=== PATIENT | male | born 1970 | race American Indian/Alaskan Native ===

== ENCOUNTER 2018-08-31 15:14 | Outpatient (CLI) | payer BC ==
[2018-08-31 15:32] LABS: Basophils % (Auto) 0.7 % (0.0-1.8); Eosinophils # (Auto) 0.2 K/mm3 (0.0-0.4); Eosinophils % (Auto) 3.4 % (0.0-4.3); Hematocrit 43.8 % (35.5-45.6); Hemoglobin 14.8 gm/dl (11.8-15.2); Lymphocytes # (Auto) 2.8 K/mm3 (1.2-5.4); Lymphocytes % (Auto) 48.6 % (13.4-35.0); Mean Corpuscular HGB Conc 34 % (32-34); Mean Corpuscular Volume 79 fl (84-94); Monocytes # (Auto) 0.7 K/mm3 (0.0-0.8); Monocytes % (Auto) 11.7 % (0.0-7.3); Platelet Count 214 K/mm3 (140-440); Red Blood Count 5.54 M/mm3 (3.65-5.03); Red Cell Distribution Width 14.3 % (13.2-15.2)
[2018-08-31 15:57] LABS: Alanine Aminotransferase 57 units/L (7-56); Albumin 4.2 g/dL (3.9-5); BUN/Creatinine Ratio 10; Blood Urea Nitrogen 10 mg/dL (9-20); Calcium 9.4 mg/dL (8.4-10.2); Chol/HDL Ratio 4.92 %; HDL Cholesterol 41 mg/dL (40-59); Hemolysis Index 1; LDL Cholesterol,Direct 150 mg/dL (50-130)
== END 2018-08-31 15:15 | disposition home or self-care (01) ==
LOC: LAB 15:14
PROVIDERS: ATTEND Internal Medicine
DX: E55.9 Vitamin D deficiency, unspecified (principal); E66.3 Overweight; I10 Essential (primary) hypertension; E78.5 Hyperlipidemia, unspecified; R53.83 Other fatigue; Z79.899 Other long term (current) drug therapy
CPT/HCPCS: 36415; 80053; 80061; 82306; 84443; 85025

== ENCOUNTER 2019-01-08 10:57 | Outpatient (CLI) | payer BC ==
--- NOTE | 2019-01-08 14:00 | Magnetic Resonance Report ---
MRI of the left knee without contrast INDICATION: Left knee pain following injury FINDINGS: Mild tricompartmental degenerative changes of the knee. Small to moderate knee effusion, pr imarily within the suprapatellar compartment. There is evidence of a horizontal oblique tear to the p osterior junctional zone and posterior horn of the medial meniscus. No free intra-articular body. The cruciate and collateral ligaments are intact. The extensor apparatus is intact the posterior lateral corner structures are intact IMPRESSION: Tricompartmental degenerative changes of the knee, as above. Horizontal oblique tear to t he posterior junctional zone and posterior horn of the medial meniscus. Signer Name: Last Acevedo MD Signed: 01/08/2019 1:55 PM Workstation Name: [id number]
== END 2019-01-08 10:58 | disposition home or self-care (01) ==
LOC: MRI 10:57
PROVIDERS: ATTEND Orthopaedic Surgery
DX: M17.12 Unilateral primary osteoarthritis, left knee (principal)
CPT/HCPCS: 73721

== ENCOUNTER 2019-06-10 10:03 | Day surgery (SDC) | payer BC ==
[~2019-06-10 10:03] MED LIST: ceFAZolin/STERILE WATER 2 GM/20 ML SYRINGE IV NR
[2019-06-10] MEDS ORDERED: HYDROmorphone 1 MG/1 ML INJ IV PRN (10:42)
--- NOTE | 2019-06-10 10:43 | Anesthesia Day of Surgery ---
Anesthesia Day of Surgery - Day of Surgery Patient Examined: Yes Patient H&P Reviewed: Yes Patient is NPO: Yes
--- NOTE | 2019-06-10 10:43 | Anesthesia Consultation ---
Anesthesia Consult and Med Hx Date of service: 06/10/19 - Airway Anesthetic Teeth Evaluation: Good ROM Head & Neck: Adequate Mental/Hyoid Distance: Adequate Mallampati Class: Class III Intubation Access Assessment: Possibly Difficult (full michelle -> possible difficult mask) - Pulmonary Exam CTA: Yes - Cardiac Exam Cardiac Exam: RRR - Pre-Operative Health Status ASA Pre-Surgery Classification: ASA1 Proposed Anesthetic Plan: General - Pulmonary Hx Smoking: Yes (OCC CIGARS) Hx Respiratory Symptoms: No Hx Sleep Apnea: No (CIERA PRE SCREEN LOW RISK.) - Cardiovascular System Hx Hypertension: No - Central Nervous System CVA: No - Gastrointestinal Hx Gastroesophageal Reflux Disease: No - Endocrine Hx Renal Disease: No Hx Liver Disease: No Hx Insulin Dependent Diabetes: No Hx Non-Insulin Dependent Diabetes: No Hx Thyroid Disease: No - Hematic Hx Sickle Cell Disease: ([facility] TRAIT ONLY) - Other Systems Hx Obesity: Yes (BMI 37)
[2019-06-10] MEDS ORDERED: GABAPENTIN 300 MG CAP PO NR (11:00)
[2019-06-10] MEDS ORDERED: LACTATED RINGERS 1,000 ML IV SCH (11:00)
[2019-06-10] MEDS ORDERED: CELECOXIB 200 MG CAP PO NR (11:00)
[2019-06-10] MEDS ORDERED: MIDAZOLAM 2 MG/2 ML INJ IV NR (11:00)
[2019-06-10] MEDS ORDERED: methylPREDNISolone ACETATE 40 MG/1 ML INJ ONE (13:22)
[2019-06-10] MEDS ORDERED: BUPIVACAINE-EPINEPHRINE/PF 0.5%-1:200,000 (30 ML) VIAL INFILTRATI ONE (13:22)
[2019-06-10] MEDS ORDERED: LIDOCAINE MPF (2%) 20 MG/1 ML VIAL 5 ML ONE (13:47)
[2019-06-10] MEDS ORDERED: PROPOFOL 200 MG/20 ML VIAL IV ONE (13:48)
[2019-06-10] MEDS ORDERED: fentaNYL 100 MCG/2 ML INJ ONE (13:48)
[2019-06-10] MEDS ORDERED: methylPREDNISolone ACETATE 80 MG/1 ML INJ INTRA-ARTI ONE (14:25)
[2019-06-10] MEDS ORDERED: BUPIVACAINE-EPINEPHRINE/PF 0.5%-1:200,000 (10 ML) VIAL IJ ONE (14:25)
--- NOTE | 2019-06-10 14:37 | Procedure Note ---
Date of procedure: 06/10/19 Pre-op diagnosis: internal derangement left knee Post-op diagnosis: other (grade 3 chondromalacia medial compartment) Procedure: Arthroscopy left knee with abrasion chondroplasty medial compartment Procedure The patient was brought to the OR placed in the OR table in supine position following induction and intubation by anesthesia the patient's left lower extremity was prepped and draped in the usual sterile manner.Atenolol procedure was done to identify the patient and the correct operative site. The leg was exsanguinated followed by inflation of the pneumatic tourniquet 300 mmHg next routine arthroscopic portals were made medial and laterally introduction of the arthroscope and insufflation of the knee joint with saline solution examination revealed these findings #1 in the medial compartment patient was noted to grade 3 chondromalacia changes involving both the tibial articular surface and corresponding femoral surfaces. Scope was then placed into the intercondylar notch. Anterior cruciate ligament was seen and appeared to be intact next placing the leg in a figure for position of the lateral compartment was explored. The patient was noted to have mild scarring of the inner portion of the lateral meniscus D articular cartilage appeared normal and consistency the suprapatellar pouch was explored and no loose bodies or abnormalities were seen here next the arthroscope was then repositioned back into the medial compartment using the arthroscopic shaver, the articular cartilage debrided back to healthy appearing articular cartilage the meniscal cartilage sorry D articular cartilage was also debrided The wound was copiously irrigated second look was done no residual bony and soft tissue debris was seen the arthroscope was then removed the stab wounds were repaired Marcaine and Depo-Medrol mixture was then injected intra-articularly with routine postoperative dressings were applied the patient tolerated the procedure Anesthesia: MAC Anesthesia: MAC Surgeon: STEPHANIE HUMPHREY Fiscal Services Director: BARBRA LIU Estimated blood loss: minimal Pathology: none Condition: stable Disposition: PACU
[2019-06-10 15:58] VITALS: BP 127/83
--- NOTE | 2019-06-10 17:30 | Post Anesthesia Evaluation ---
- Post Anesthesia Evaluation Patient Participated: Yes Airway Patent: Yes Stable Respiratory Function: Yes Nausea/Vomiting: No Temp > 96.8F: Yes Pain Manageable: Yes Adequeate Hydration: Yes Anesthesia Complications: No Block Receding Appropriately: Not Applicable Patient on Ventilator: No
== END 2019-06-10 16:11 | disposition home or self-care (01) ==
LOC: OR 10:03
PROVIDERS: ATTEND Orthopaedic Surgery
DX: M23.8X2 Other internal derangements of left knee (principal); E66.9 Obesity, unspecified; F17.210 Nicotine dependence, cigarettes, uncomplicated; Z79.899 Other long term (current) drug therapy; Z68.37 Body mass index [BMI] 37.0-37.9, adult; Z98.890 Other specified postprocedural states
CPT/HCPCS: 29877; J0690; J1040; J2250; J2704; J3010; J7120; J1030

== ENCOUNTER 2019-11-10 12:09 | Outpatient (CLI) | payer BC ==
--- NOTE | 2019-11-10 14:23 | XRay Report ---
HISTORY:PAIN IN LEFT SHOULDER,UNSPECIFIED FRACTURE OF LEFT PUBIS COMPARISON: None. TECHNIQUE: AP views were obtained FINDINGS: Bones: No fracture or dislocation. Joint spaces: Maintained. Soft tissues: No significant abnormality. Additional findings: None. IMPRESSION: 1. No significant abnormality. Signer Name: Moe Cook MD Signed: 11/10/2019 2:18 PM Workstation Name: [id number]
== END 2019-11-10 12:10 | disposition home or self-care (01) ==
LOC: XRAY 12:09
PROVIDERS: ATTEND Orthopaedic Surgery
DX: S32.502A Unspecified fracture of left pubis, initial encounter for closed fracture (principal); M25.512 Pain in left shoulder; X58.XXXA Exposure to other specified factors, initial encounter; Y93.89 Activity, other specified; Y92.89 Other specified places as the place of occurrence of the external cause; Y99.8 Other external cause status
CPT/HCPCS: 72170

== ENCOUNTER 2019-12-20 11:45 | Outpatient (CLI) | payer BC ==
--- NOTE | 2019-12-20 13:24 | Magnetic Resonance Report ---
MRI left shoulder without contrast INDICATION: PAIN IN LEFT SHOULDER. COMPARISON: Left shoulder radiographs from 11/12/2019 FINDINGS: There is mild metallic artifact overlying the anterior glenoid where a metallic fixation s crew is in place. This does not significantly limited exam. There is advanced glenohumeral degenerative arthrosis with prominent marginal osteophytosis. An old-a ppearing Hill-Sachs fracture is present. The labrum is macerated, especially the inferior labrum. There is a small joint effusion and several small intra-articular osteochondral bodies. There is intermediate fluid signal within some of the rotator cuff tendons as well as trace subacromi al/subdeltoid and subcoracoid bursal fluid. No discrete rotator cuff tendon tear identified. The lizbeth ps tendon is intact. IMPRESSION: 1. Advanced glenohumeral degenerative arthrosis with macerated inferior labrum, small likely reactive joint effusion/synovitis, and several small osteochondral bodies. 2. The corresponding radiograph shows loosening of the anterior glenoid screw with considerable perim etallic lucency. Signer Name: Adalberto Nash MD Signed: 12/20/2019 1:20 PM Workstation Name: [id number]
== END 2019-12-20 11:46 | disposition home or self-care (01) ==
LOC: MRI 11:45
PROVIDERS: ATTEND Orthopaedic Surgery
DX: M19.012 Primary osteoarthritis, left shoulder (principal); M25.712 Osteophyte, left shoulder; M25.412 Effusion, left shoulder; Z98.890 Other specified postprocedural states

== ENCOUNTER 2020-05-26 05:56 | Day surgery (SDC) | payer BC ==
[~2020-05-26 05:56] MED LIST changes: +SODIUM CHLORIDE 0.9% 1000 ML 1,000 ML IV SCH; +WATER FOR IRRIG STERILE 1,000 ML BOTTLE ONE; +WATER FOR IRRIG STERILE 250 ML BOTTLE IR ONE; -ceFAZolin/STERILE WATER 2 GM/20 ML SYRINGE IV NR
--- NOTE | 2020-05-26 07:39 | Anesthesia Consultation ---
Anesthesia Consult and Med Hx Date of service: 05/26/20 - Airway Anesthetic Teeth Evaluation: Good ROM Head & Neck: Adequate Mental/Hyoid Distance: Adequate Mallampati Class: Class II Intubation Access Assessment: Probably Good - Pre-Operative Health Status ASA Pre-Surgery Classification: ASA2 Proposed Anesthetic Plan: MAC - Pulmonary Hx Smoking: Yes (OCC CIGARS) Hx Asthma: No Hx Respiratory Symptoms: No SOB: No COPD: No Home Oxygen Therapy: No Hx Pneumonia: No Hx Sleep Apnea: No (CIERA PRE SCREEN LOW RISK.) - Cardiovascular System Hx Hypertension: No Hx Coronary Artery Disease: No Hx Heart Attack/AMI: No Hx Angina: No Hx Percutaneous Transluminal Coronary Angioplasty (PTCA): No Hx Cardia Arrhythmia: No Hx Pacemaker: No Hx Internal Defibrillator: No Hx Valvular Heart Disease: No Hx Heart Murmur: No Hx Peripheral Vascular Disease: No - Central Nervous System Hx Neuromuscular Disorder: No Hx Seizures: No CVA: No Hx Back Pain: No Hx Psychiatric Problems: No - Gastrointestinal Hx Ulcer: No Hx Gastroesophageal Reflux Disease: No - Endocrine Hx Renal Disease: No Hx End Stage Renal Disease: No Hx Cirrhosis: No Hx Liver Disease: No Hx Insulin Dependent Diabetes: No Hx Non-Insulin Dependent Diabetes: No Hx Thyroid Disease: No Hx Hypothyroidism: No Hx Hyperthyroidism: No - Hematic Hx Anemia: No Hx Sickle Cell Disease: Yes ([facility] ONLY) - Other Systems Hx Alcohol Use: No Hx Substance Use: No Hx Cancer: No Hx Obesity: Yes (BMI 37)
--- NOTE | 2020-05-26 07:40 | Anesthesia Day of Surgery ---
Anesthesia Day of Surgery - Day of Surgery Patient Examined: Yes Patient H&P Reviewed: Yes Patient is NPO: Yes
[2020-05-26] MEDS ORDERED: LIDOCAINE MPF (2%) 20 MG/1 ML VIAL 5 ML ONE (07:54)
[2020-05-26] MEDS ORDERED: propofoL 200 MG/20 ML VIAL IV ONE ×2 (07:54→08:10)
--- NOTE | 2020-05-26 08:20 | Short Stay Summary ---
Short Stay Documentation Date of service: 05/26/20 Narrative H&P: Patient is a 49 yo aam who presents for screening colonoscopy. No changes from clinic note - History Past Medical History: other (no changes) Past Surgical History: No surgical history Social history: no significant social history - Allergies and Medications Current Medications: Allergies No Known Allergies Allergy (Verified 06/03/19 16:55) Home Medications Medication Instructions Recorded Confirmed Last Taken Type HYDROcodone/APAP 5-325 [Wagner 1 each PO Q4HR PRN #20 tablet 06/10/19 Unknown Rx 5-325 mg TAB] Active Medications Sodium Chloride (Nacl 0.9% 1000 Ml) 1,000 mls @ 50 mls/hr IV DIRECT BLANCO Last Admin: 05/26/20 07:15 Dose: 50 mls/hr Documented by: - Physical exam General appearance: no acute distress Lungs: Clear to auscultation Gastrointestinal: normal - Brief post op/procedure progress note Date of procedure: 05/26/20 Pre-op diagnosis: Screening for colorectal cancer Post-op diagnosis: other (cecal polyp) Procedure: colonoscopy with biopsy polypectomy Anesthesia: MAC Findings: 2 mm cecal polyp removed with cold biopsy forceps Surgeon: THADDEUS MCMULLEN Estimated blood loss: minimal Pathology: list (Jar A - cecal polyp) Specimen disposition: to lab Condition: stable - Disposition Condition at discharge: Good Disposition: DC-01 TO HOME OR SELFCARE Short Stay Discharge Plan Follow up with: MARTHA FUENTES MD [Primary Care Provider] - 7 Days
--- NOTE | 2020-05-26 08:23 | Operative Report ---
Operative Report Operative Report: Colonoscopy Procedure Note with biopsy polypectomy Date of procedure: 05/26/2020 Endoscopist: Edgar Basilio Pre-op diagnosis/indication: Screening for colorectal cancer Post-op diagnosis: Cecal polyp MEDICATIONS: MAC COMPLICATIONS: No immediate complications ESTIMATED BLOOD LOSS: Minimal DESCRIPTION OF PROCEDURE: After consent was obtained, the patient was placed in the left lateral decubitis position. The olympus colonoscope was inserted into the rectum and advanced to the cecum without difficulty. The patient tolerated the procedure well. The views of the mucosa were good. The quality of prep was good. The patients vital signs were monitored continuously throughout the procedure. FINDINGS: There was an ~2 mm sessile polyp in the cecum. The polyp was removed with cold biopsy forceps and retrieved. Otherwise, the colon appeared normal. IMPRESSION: 1. Small cecal polyp removed with cold biopsy forceps. 2. Otherwise, the colon appeared normal. RECOMMENDATIONS: -follow-up pathology -repeat colonoscopy in 5 years for surveillance
[2020-05-26 09:04] VITALS: BP 160/89
== END 2020-05-26 05:57 | disposition home or self-care (01) ==
LOC: GIO 05:56
PROVIDERS: ATTEND Internal Medicine Gastroenterology
DX: Z12.11 Encounter for screening for malignant neoplasm of colon (principal); K63.5 Polyp of colon; M19.90 Unspecified osteoarthritis, unspecified site; F17.210 Nicotine dependence, cigarettes, uncomplicated; E66.9 Obesity, unspecified; Z79.899 Other long term (current) drug therapy; Z68.41 Body mass index [BMI] 40.0-44.9, adult; Z98.890 Other specified postprocedural states
CPT/HCPCS: 45380; 88305; J2704; J7030

== ENCOUNTER 2020-09-12 12:43 | Outpatient (CLI) | payer BC ==
[2020-09-12 13:09] LABS: Hematocrit 43.4 % (35.5-45.6); Hemoglobin 14.8 gm/dl (11.8-15.2); Mean Corpuscular HGB Conc 34 % (32-34); Mean Corpuscular Volume 78 fl (84-94); Platelet Count 229 K/mm3 (140-440); Red Blood Count 5.58 M/mm3 (3.65-5.03); Red Cell Distribution Width 14.1 % (13.2-15.2)
[2020-09-12 13:43] LABS: Alanine Aminotransferase 15 units/L (7-56); Albumin 3.9 g/dL (3.9-5); BUN/Creatinine Ratio 11; Blood Urea Nitrogen 14 mg/dL (9-20); Chol/HDL Ratio 4.61 %; HDL Cholesterol 44 mg/dL (40-59); Hemolysis Index 4; LDL Cholesterol,Direct 156 mg/dL (50-130)
== END 2020-09-12 12:44 | disposition home or self-care (01) ==
LOC: LAB 12:43
PROVIDERS: ATTEND Internal Medicine
DX: I10 Essential (primary) hypertension (principal); E07.9 Disorder of thyroid, unspecified; E55.9 Vitamin D deficiency, unspecified; E78.5 Hyperlipidemia, unspecified; R53.83 Other fatigue; Z79.899 Other long term (current) drug therapy
CPT/HCPCS: 36415; 80053; 80061; 82652; 84443; 85027

== ENCOUNTER 2021-04-23 11:07 | Outpatient (CLI) | payer BC ==
[2021-04-23 11:29] LABS: Basophils # (Auto) 0.1 K/mm3 (0.0-0.1); Basophils % (Auto) 1.2 % (0.0-1.8); Eosinophils # (Auto) 0.2 K/mm3 (0.0-0.4); Eosinophils % (Auto) 3.7 % (0.0-4.3); Hematocrit 42.8 % (35.5-45.6); Hemoglobin 14.2 gm/dl (11.8-15.2); Lymphocytes # (Auto) 2.3 K/mm3 (1.2-5.4); Lymphocytes % (Auto) 43.9 % (13.4-35.0); Mean Corpuscular HGB Conc 33 % (32-34); Mean Corpuscular Volume 79 fl (84-94); Monocytes # (Auto) 0.6 K/mm3 (0.0-0.8); Monocytes % (Auto) 11.5 % (0.0-7.3); Platelet Count 206 K/mm3 (140-440); Red Blood Count 5.42 M/mm3 (3.65-5.03); Red Cell Distribution Width 15.2 % (13.2-15.2)
[2021-04-23 12:14] LABS: Alanine Aminotransferase 10 units/L (7-56); Albumin 3.9 g/dL (3.9-5); BUN/Creatinine Ratio 10; Blood Urea Nitrogen 11 mg/dL (9-20); Chol/HDL Ratio 4.18 %; HDL Cholesterol 50 mg/dL (40-59); Hemolysis Index 11; LDL Cholesterol,Direct 156 mg/dL (50-130)
== END 2021-04-23 11:08 | disposition home or self-care (01) ==
LOC: LAB 11:07
PROVIDERS: ATTEND Internal Medicine
DX: I10 Essential (primary) hypertension (principal); E78.5 Hyperlipidemia, unspecified; E07.9 Disorder of thyroid, unspecified; E55.9 Vitamin D deficiency, unspecified; R53.83 Other fatigue; Z79.899 Other long term (current) drug therapy; E78.9 Disorder of lipoprotein metabolism, unspecified
CPT/HCPCS: 36415; 80053; 80061; 82306; 84443; 85025

== ENCOUNTER 2021-05-09 13:18 | Outpatient (CLI) | payer BC ==
--- NOTE | 2021-05-10 07:01 | Ultrasound Report ---
ULTRASOUND THYROID INDICATION: NODULE. COMPARISON: None available. FINDINGS: RIGHT LOBE: Size: 4.7 x 1.1 x 1.9 cm. Echogenicity: Mildly heterogeneous. Vascularity: Normal. Subcentimeter nodules: None. LEFT LOBE: Size: 5.2 x 1.3 x 1.6 cm. Echogenicity: Mildly heterogeneous Vascularity: Normal. Subcentimeter nodules: 4 mm hypoechoic complex nodule with mild calcification. ISTHMUS: Normal Thickness: 0.2 cm. NODULES LARGER THAN 1 CM OR SUSPICIOUS NODULES: -- NODULE # 1 -- Location: right mid -- Size: 1 cm. Average size = 0.7 cm. -- Composition: Solid = 2 points -- Echogenicity: Hypoechoic = 2 points -- Shape: [id number] = 0 points -- Margin: Smooth = 0 points -- Echogenic Foci: Macrocalcifications = 1 point -- Additional Findings: None. -- ACR TI-RADS Score = 4. -- ACR TI-RADS Category = TR-4 (4-6 points). Lymph nodes: No abnormal lymph nodes. Parathyroid glands: No abnormal parathyroid gland. Additional findings: None. IMPRESSION: 1. TI-RADS 4 nodule measuring 1 cm right thyroid. Follow-up recommended at one year. 2. Bilateral thyroid heterogeneity ACR TI-RADS Recommendations TI-RADS 1 (0 points) -- Benign. No FNA or follow-up. TI-RADS 2 (1-2 points) -- Not suspicious. No FNA or follow-up. TI-RADS 3 (3 points) -- Mildly suspicious. Follow up in 1 year if 1.5 cm. FNA if 2.5 cm. TI-RADS 4 (4-6 points) -- Moderately suspicious. Follow up in 1 year if 1.0 cm. FNA if 1.5 cm. TI-RADS 5 (7+ points) -- Highly suspicious. Follow up in 1 year if 0.5 cm. FNA if 1.0 cm. Signer Name: Simba Aguirre MD Signed: 05/10/2021 6:57 AM Workstation Name: [id number]
== END 2021-05-09 13:19 | disposition home or self-care (01) ==
LOC: US 13:18
PROVIDERS: ATTEND Internal Medicine
DX: E04.1 Nontoxic single thyroid nodule (principal)
CPT/HCPCS: 76536

== ENCOUNTER 2021-08-23 15:31 | Outpatient (CLI) | payer BC ==
[2021-08-23 15:56] LABS: Basophils % (Auto) 0.7 % (0.0-1.8); Eosinophils # (Auto) 0.2 K/mm3 (0.0-0.4); Eosinophils % (Auto) 3.9 % (0.0-4.3); Hematocrit 45.1 % (35.5-45.6); Hemoglobin 14.7 gm/dl (11.8-15.2); Lymphocytes # (Auto) 2.5 K/mm3 (1.2-5.4); Lymphocytes % (Auto) 43.1 % (13.4-35.0); Mean Corpuscular HGB Conc 33 % (32-34); Mean Corpuscular Volume 79 fl (84-94); Monocytes # (Auto) 0.8 K/mm3 (0.0-0.8); Monocytes % (Auto) 13.5 % (0.0-7.3); Platelet Count 227 K/mm3 (140-440); Red Blood Count 5.75 M/mm3 (3.65-5.03); Red Cell Distribution Width 14.4 % (13.2-15.2)
[2021-08-23 16:23] LABS: Alanine Aminotransferase 13 units/L (7-56); Albumin 4.2 g/dL (3.9-5); BUN/Creatinine Ratio 9; Blood Urea Nitrogen 11 mg/dL (9-20); Calcium 9.6 mg/dL (8.4-10.2); HDL Cholesterol 48 mg/dL (40-59); Hemolysis Index 8; LDL Cholesterol,Direct 151 mg/dL (50-130)
== END 2021-08-23 15:32 | disposition home or self-care (01) ==
LOC: LAB 15:31
PROVIDERS: ATTEND Internal Medicine
DX: I10 Essential (primary) hypertension (principal); E07.9 Disorder of thyroid, unspecified; E55.9 Vitamin D deficiency, unspecified; E78.5 Hyperlipidemia, unspecified; R53.83 Other fatigue; Z79.899 Other long term (current) drug therapy
CPT/HCPCS: 36415; 80053; 80061; 82306; 84443; 85025

== ENCOUNTER 2021-12-04 14:57 | Outpatient (CLI) | payer BC ==
[2021-12-04 15:55] LABS: Hematocrit 43.6 % (35.5-45.6); Hemoglobin 14.2 gm/dl (11.8-15.2); Mean Corpuscular HGB Conc 33 % (32-34); Mean Corpuscular Volume 79 fl (84-94); Platelet Count 249 K/mm3 (140-440); Red Blood Count 5.55 M/mm3 (3.65-5.03); Red Cell Distribution Width 14.5 % (13.2-15.2)
[2021-12-04 16:17] LABS: Alanine Aminotransferase 14 units/L (7-56); Albumin 4.1 g/dL (3.9-5); BUN/Creatinine Ratio 11; Blood Urea Nitrogen 13 mg/dL (9-20); Calcium 9.1 mg/dL (8.4-10.2); Chol/HDL Ratio 5.09 %; HDL Cholesterol 41 mg/dL (40-59); Hemolysis Index 3; LDL Cholesterol,Direct 153 mg/dL (50-130)
== END 2021-12-04 14:58 | disposition home or self-care (01) ==
LOC: LAB 14:57
PROVIDERS: ATTEND Internal Medicine
DX: I10 Essential (primary) hypertension (principal); E07.9 Disorder of thyroid, unspecified; E55.9 Vitamin D deficiency, unspecified; E78.5 Hyperlipidemia, unspecified; R53.83 Other fatigue
CPT/HCPCS: 36415; 80053; 80061; 82306; 84443; 85027